=== PATIENT | male | born 1985 | race Two or more races ===

== ENCOUNTER 2016-11-14 14:29 | Emergency (ER) | payer MEDICAID, OTHER ==
[2016-11-14] MEDS ORDERED: Aspirin Low Dose CHEW TAB* 81 MG PO ONE (17:28)
[2016-11-14 17:36] LABS: Hematocrit 49 % (42-52); Mean Corpuscular HGB Conc 35 g/dl (31-36); Mean Corpuscular Hemoglobin 30 pg (27-31); Mean Corpuscular Volume 87 fL (80-94); Mean Platelet Volume 11 um3 (7.4-10.4); Red Blood Count 5.67 10^6/ul (4.0-5.4); Red Cell Distribution Width 12 % (10.5-15); White Blood Count 5.8 10^3/ul (3.5-10.8)
[2016-11-14 17:48] LABS: ALT 25 U/L (7-52); Alkaline Phosphatase 51 U/L (34-104); BUN/Creatinine Ratio 15.4 (8-20); Blood Urea Nitrogen 14 mg/dL (6-24); CO2 Carbon Dioxide 30 mmol/L (22-32); Calcium 9.7 mg/dL (8.6-10.3); Chloride 100 mmol/L (101-111); EGFR Non-African American 97.2 (>60); Globulin 2.9 g/dL (2-4); Glucose 93 mg/dL (70-100); Sodium 136 mmol/L (133-145); Total Protein 7.9 g/dL (6.4-8.9)
--- NOTE | 2016-11-14 18:16 | RAD ---
INDICATION: Chest pain. COMPARISON: There are no prior studies available for comparison. TECHNIQUE: Dual-energy PA and lateral views of the chest were obtained. FINDINGS: The heart is within normal limits in size. Mediastinal and hilar contours appear within normal limits. The lungs are clear. No pleural effusion or pneumothorax is seen. IMPRESSION: NO EVIDENCE FOR ACTIVE CARDIOPULMONARY DISEASE.
--- NOTE | 2016-11-14 20:10 | ED ---
Silver Malcolm Adam, scribed for Hilton Camarena MD on 11/14/16 at 1722 . HPI Chest Pain - HPI Summary HPI Summary: Pt is a 31 year old male presenting with left anterior CP. The pain set on a few days ago and it has been intermittent. Pt states that it feels like musculoskeletal pain. Lying down alleviates the pain; exertion aggravates it. The pain is not present at this time but was earlier today. Pt denies diaphoresis, nausea, dizziness, and SOB. Negative PMHx. FMHx of HTN and HLD. - History of Current Complaint Chief Complaint: EDChestPainROMI Time Seen by Provider: 11/14/16 17:15 Hx Obtained From: Patient Onset/Duration: Started Days Ago, Atraumatic, Still Present Timing: Intermittent Initial Severity: Moderate Current Severity: None Pain Intensity: 2 Pain Scale Used: 0-10 Numeric Chest Pain Location: Left Anterior Character: Other: - Feels like muscular pain Aggravating Factor(s): Exertion Alleviating Factor(s): Other: - Lying down Associated Signs and Symptoms: Positive: Negative. Negative: Dizziness, Shortness of Breath, Diaphoresis, Nausea - Allergy/Home Medications Allergies/Adverse Reactions: Allergies Allergy/AdvReac Type Severity Reaction Status Date / Time No Known Allergies Allergy Verified 11/14/16 14:35 PMH/Surg Hx/FS Hx/Imm Hx Previously Healthy: Yes Infectious Disease History: No Infectious Disease History: Denies: Traveled Outside the [place] in Last 30 Days - Family History Known Family History: Positive: Hypertension, Other - HLD - Social History Occupation: Student Lives: With Family - Mother Alcohol Use: None Hx Substance Use: No Hx Tobacco Use: No Review of Systems Negative: Skin Diaphoresis Positive: Chest Pain Negative: Shortness Of Breath Negative: Nausea All Other Systems Reviewed And Are Negative: Yes Physical Exam Triage Information Reviewed: Yes Vital Signs On Initial Exam: Initial Vitals Temp Pulse Resp BP Pulse Ox 98.9 F 77 18 172/99 99 11/14/16 14:32 11/14/16 14:32 11/14/16 14:32 11/14/16 14:32 11/14/16 14:32 Vital Signs Reviewed: Yes Appearance: Positive: Well-Appearing, No Pain Distress Skin: Positive: Warm, Skin Color Reflects Adequate Perfusion, Dry Head/Face: Positive: Normal Head/Face Inspection Eyes: Positive: Normal ENT: Positive: Normal ENT inspection Neck: Positive: Supple, Nontender Respiratory/Lung Sounds: Positive: Clear to Auscultation, Breath Sounds Present Cardiovascular: Positive: RRR Abdomen Description: Positive: Nontender, Soft Bowel Sounds: Positive: Present Musculoskeletal: Positive: Normal Neurological: Positive: Normal Psychiatric: Positive: Normal, Affect/Mood Appropriate Diagnostics - Vital Signs Vital Signs Temp Pulse Resp BP Pulse Ox 11/14/16 14:32 98.9 F 77 18 172/99 99 - Laboratory Lab Results: Lab Results 11/14/16 11/14/16 11/14/16 Range/Units 15:00 15:00 15:00 WBC 5.8 (3.5-10.8) 10^3/ul RBC 5.67 H (4.0-5.4) 10^6/ul Hgb 17.0 (14.0-18.0) g/dl Hct 49 (42-52) % MCV 87 (80-94) fL MCH 30 (27-31) pg MCHC 35 (31-36) g/dl RDW 12 (10.5-15) % Plt Count 220 (150-450) 10^3/ul MPV 11 H (7.4-10.4) um3 Neut % (Auto) 59.1 (38-83) % Lymph % (Auto) 31.4 (25-47) % [place] % (Auto) 6.6 (1-9) % Eos % (Auto) 2.1 (0-6) % Baso % (Auto) 0.8 (0-2) % Absolute Neuts (auto) 3.4 (1.5-7.7) 10^3/ul Absolute Lymphs (auto) 1.8 (1.0-4.8) 10^3/ul Absolute Monos (auto) 0.4 (0-0.8) 10^3/ul Absolute Eos (auto) 0.1 (0-0.6) 10^3/ul Absolute Basos (auto) 0 (0-0.2) 10^3/ul Absolute Nucleated RBC 0.01 10^3/ul Nucleated RBC % 0.1 D-Dimer, Quantitative < 200 (Less Than 230) ng/mL Sodium 136 (133-145) mmol/L Potassium TNP Chloride 100 L (101-111) mmol/L Carbon Dioxide 30 (22-32) mmol/L Anion Gap TNP BUN 14 (6-24) mg/dL Creatinine 0.91 (0.67-1.17) mg/dL Est GFR ( Amer) 125.0 (>60) Est GFR (Non-Af Amer) 97.2 (>60) BUN/Creatinine Ratio 15.4 (8-20) Glucose 93 (70-100) mg/dL Calcium 9.7 (8.6-10.3) mg/dL Total Bilirubin 0.70 (0.2-1.0) mg/dL AST TNP ALT 25 (7-52) U/L Alkaline Phosphatase 51 (34-104) U/L Troponin I 0.00 (<0.04) ng/mL Total Protein 7.9 (6.4-8.9) g/dL Albumin 5.0 (3.2-5.2) g/dL Globulin 2.9 (2-4) g/dL Albumin/Globulin Ratio 1.7 (1-3) 11/14/16 Range/Units 18:03 WBC (3.5-10.8) 10^3/ul RBC (4.0-5.4) 10^6/ul Hgb (14.0-18.0) g/dl Hct (42-52) % MCV (80-94) fL MCH (27-31) pg MCHC (31-36) g/dl RDW (10.5-15) % Plt Count (150-450) 10^3/ul MPV (7.4-10.4) um3 Neut % (Auto) (38-83) % Lymph % (Auto) (25-47) % [place] % (Auto) (1-9) % Eos % (Auto) (0-6) % Baso % (Auto) (0-2) % Absolute Neuts (auto) (1.5-7.7) 10^3/ul Absolute Lymphs (auto) (1.0-4.8) 10^3/ul Absolute Monos (auto) (0-0.8) 10^3/ul Absolute Eos (auto) (0-0.6) 10^3/ul Absolute Basos (auto) (0-0.2) 10^3/ul Absolute Nucleated RBC 10^3/ul Nucleated RBC % D-Dimer, Quantitative (Less Than 230) ng/mL Sodium (133-145) mmol/L Potassium 4.2 Chloride (101-111) mmol/L Carbon Dioxide (22-32) mmol/L Anion Gap BUN (6-24) mg/dL Creatinine (0.67-1.17) mg/dL Est GFR ( Amer) (>60) Est GFR (Non-Af Amer) (>60) BUN/Creatinine Ratio (8-20) Glucose (70-100) mg/dL Calcium (8.6-10.3) mg/dL Total Bilirubin (0.2-1.0) mg/dL AST 20 ALT (7-52) U/L Alkaline Phosphatase (34-104) U/L Troponin I (<0.04) ng/mL Total Protein (6.4-8.9) g/dL Albumin (3.2-5.2) g/dL Globulin (2-4) g/dL Albumin/Globulin Ratio (1-3) Result Diagrams: 11/14/16 15:00 11/14/16 18:03 Lab Statement: Any lab studies that have been ordered have been reviewed, and results considered in the medical decision making process. - Radiology CXR Radiology Interpretation Completed By: Radiologist - IMPRESSION: NO EVIDENCE FOR ACTIVE CARDIOPULMONARY DISEASE. - EKG 14:35 Cardiac Rate: Bradycardia - 59 BPM EKG Rhythm: Sinus Bradycardia - Additional Comments Diagnostic Additional Comments: Troponin I - 0.00 (15:00) Chest Pain Course/Dx - Course Course Of Treatment: Mr. Lunsford presented with CP intermittently for a few days. He was evaulated with CXR and labs including two troponins and has a low EDACS score. He will be D/C'd for F/U. - Diagnoses Provider Diagnoses: Chest pain Discharge - Discharge Plan Condition: Stable Disposition: HOME Patient Education Materials: Chest Pain (ED) Referrals: Ruben Mantilla MD [Primary Care Provider] - Additional Instructions: Follow up with Dr. Mantilla. The documentation as recorded by the Silver [facility] Adam accurately reflects the service I personally performed and the decisions made by , Hilton Camarena MD.
[2016-11-14 20:42] VITALS: BP 120/75
== END 2016-11-14 21:41 | disposition home or self-care (01) ==
LOC: ED 14:29
DX: R07.89 Other chest pain (principal)
CPT/HCPCS: 36415; 71020; 80053; 84484; 85025; 85379; 93005; 99283

== ENCOUNTER 2017-04-24 17:14 | Emergency (ER) | payer OTHER ==
[2017-04-24 18:39] VITALS: BP 134/79
--- NOTE | 2017-05-07 15:41 | UC ---
Ear Complaint HPI - HPI Summary HPI Summary: Bilateral ear discomfort is concerned he may have wax build up - History of Current Complaint Chief Complaint: UCEar Stated Complaint: EAR PAIN BILATERAL Time Seen by Provider: 04/24/17 19:00 Hx Obtained From: Patient Onset/Duration: Gradual Onset Severity Initially: Moderate Severity Currently: Moderate Pain Intensity: 8 Pain Scale Used: 0-10 Numeric Aggravating Factors: Nothing Alleviating Factors: Nothing - Allergies/Home Medications Allergies/Adverse Reactions: Allergies Allergy/AdvReac Type Severity Reaction Status Date / Time No Known Allergies Allergy Verified 11/14/16 14:35 Home Medications: Home Medications Ibuprofen [Advil] 200 mg PO 04/24/17 [History] PMH/Surg Hx/FS Hx/Imm Hx Previously Healthy: Yes - Surgical History Surgical History: Yes Surgery Procedure, Year, and Place: wisdom teeth removal - Family History Known Family History: Positive: Hypertension, Other - HLD - Social History Occupation: Employed Full-time Lives: With Family Alcohol Use: Occasionally Substance Use Type: None Smoking Status (MU): Never Smoked Tobacco Review of Systems Constitutional: Negative Skin: Negative Eyes: Negative ENT: Ear Ache, Sinus Congestion Respiratory: Negative Cardiovascular: Negative Gastrointestinal: Negative Genitourinary: Negative Motor: Negative Neurovascular: Negative Musculoskeletal: Negative Neurological: Negative Psychological: Negative All Other Systems Reviewed And Are Negative: Yes Physical Exam Triage Information Reviewed: Yes Appearance: Well-Appearing, No Pain Distress, Well-Nourished Vital Signs: Initial Vital Signs Temp 98.3 F 04/24/17 18:36 Pulse 59 04/24/17 18:36 Resp 18 04/24/17 18:36 BP 134/79 04/24/17 18:36 Pulse Ox 99 04/24/17 18:36 Vital Signs Reviewed: Yes Eye Exam: Normal Eyes: Positive: Conjunctiva Clear ENT Exam: Normal ENT: Positive: Normal ENT inspection, Hearing grossly normal, Pharynx normal, Nasal congestion, TMs normal - bulding. Negative: Nasal drainage, Tonsillar swelling, Tonsillar exudate, Trismus, Other: Dental Exam: Normal Dental: Positive: Percussion Tenderness @ Neck exam: Normal Neck: Positive: Supple, Nontender, No Lymphadenopathy Respiratory Exam: Normal Respiratory: Positive: Chest non-tender, No respiratory distress, No accessory muscle use Cardiovascular Exam: Normal Cardiovascular: Positive: RRR, Pulses Normal, Brisk Capillary Refill Musculoskeletal Exam: Normal Musculoskeletal: Positive: Strength Intact, ROM Intact, No Edema Neurological Exam: Normal Neurological: Positive: Alert, Muscle Tone Normal Psychological Exam: Normal Skin Exam: Normal Ear Complaint Course/Dx - Course Course Of Treatment: Augmentin, flonase, zyrtec increase fulid follow with pcp - Differential Dx/Diagnosis Differential Diagnosis/HQI/PQRI: Cerumen Impaction, Otitis Externa, Otitis Media , URI Provider Diagnoses: Serrous otitis media Discharge - Discharge Plan Condition: Stable Disposition: HOME Prescriptions: Amoxicillin PO (*) [Amoxicillin 875 MG (*)] 875 mg PO BID #20 tab Fluticasone NASAL SPRAY 50MCG* [Flonase NASAL SPRAY 50MCG*] 2 spray BOTH NARES DAILY #1 btl Patient Education Materials: Pseudoephedrine (By mouth), Serous Otitis Media ( ED) Referrals: Ruben Mantilla MD [Primary Care Provider] - If Needed
== END 2017-04-24 19:27 | disposition home or self-care (01) ==
LOC: UCEAST 17:14
DX: H65.93 Unspecified nonsuppurative otitis media, bilateral (principal); R09.81 Nasal congestion
CPT/HCPCS: 99212; G0463

== ENCOUNTER 2019-03-24 08:57 | Emergency (ER) | payer OTHER ==
[2019-03-24 09:11] VITALS: BP 141/77
--- NOTE | 2019-03-24 10:20 | UC ---
Bite Injury/Animal HPI - HPI Summary HPI Summary: 20:30 last pm, walking in [facility], when he walked past a dog who was on a lead which was not held by the scrum product owner. No provocation: dog ran after him and bit his left buttock through 2 layers of clothing. Cannot see wound, so came for assessment. Might have had brief contact of the dog's mouth/saliva with his right hand. Tetanus is up to date. - History of Current Complaint Chief Complaint: UCBiteInjury Stated Complaint: DOGBITE TO BUTT Time Seen by Provider: 03/24/19 09:28 Hx Obtained From: Patient Severity Currently: Mild Severity Initially: Mild Pain Intensity: 0 Onset/Duration: Sudden Onset Type of Bite: Animal Has Animal Been Immunized?: Unknown Aggravating Factor(s): Nothing Alleviating Factor(s): Rest Associated Signs And Symptoms: Positive: Negative Hx of Bite: Unprovoked Animal Available for Observation: No Animal Control Notified: Yes - Risk Factors Infection/Sepsis Risk Factors: Negative - Allergies/Home Medications Allergies/Adverse Reactions: Allergies Allergy/AdvReac Type Severity Reaction Status Date / Time No Known Allergies Allergy Verified 03/24/19 09:12 Home Medications: Home Medications NK [No Home Medications Reported] 03/24/19 [History Confirmed 03/24/19] PMH/Surg Hx/FS Hx/Imm Hx Previously Healthy: Yes - Surgical History Surgical History: Yes Surgery Procedure, Year, and Place: wisdom teeth removal - Family History Known Family History: Positive: Hypertension, Other - HLD - Social History Occupation: Employed Full-time Alcohol Use: Occasionally Substance Use Type: None Smoking Status (MU): Never Smoked Tobacco Review of Systems All Other Systems Reviewed And Are Negative: Yes Constitutional: Positive: Negative Skin: Positive: Other - wound left lower buttock Is Patient Immunocompromised?: No Physical Exam Triage Information Reviewed: Yes Appearance: Well-Appearing, No Pain Distress Vital Signs: Initial Vital Signs Temp 98 F 03/24/19 09:06 Pulse 79 03/24/19 09:06 Resp 17 03/24/19 09:06 BP 141/77 03/24/19 09:06 Pulse Ox 100 03/24/19 09:06 Eye Exam: Normal ENT: Positive: Normal ENT inspection Neck exam: Normal Respiratory Exam: Normal Neurological Exam: Normal Neurological: Positive: Alert Psychological Exam: Normal Skin Exam: Other - left outer lower buttock with 2 cm raised erythematous linear mariely without evidence of puncture. right hand with a tiny break in the cuticle--uncertain if he had contact with the dog's saliva. Bite Injury Course/Dx - Course Course Of Treatment: Health department notified, confirm tetanus is up to date. - Differential Dx/Diagnosis Provider Diagnosis: Dog bite of buttock Discharge - Sign-Out/Discharge Documenting (check all that apply): Patient Departure All imaging exams completed and their final reports reviewed: No Studies - Discharge Plan Condition: Good Disposition: HOME Patient Education Materials: Animal Bite (ED) Referrals: Ruben Mantilla MD [Primary Care Provider] - Additional Instructions: You will be contacted by the health department for the final decision about rabies immunization, but the risk of rabies is low (no evidence of full skin puncture. Confirm that your tetanus is up to date with [facility]. - Billing Disposition and Condition Condition: GOOD Disposition: Home
== END 2019-03-24 10:30 | disposition home or self-care (01) ==
LOC: UCEAST 08:57
DX: S30.870A Other superficial bite of lower back and pelvis, initial encounter (principal); W54.0XXA Bitten by dog, initial encounter; Y93.01 Activity, walking, marching and hiking; Y92.830 Public park as the place of occurrence of the external cause; Y99.8 Other external cause status
CPT/HCPCS: 99211; G0463